=== PATIENT | male | born 1960 | race African-American/Black ===

== ENCOUNTER 2024-03-24 09:03 | Emergency (ER) | payer SELFPAY ==
[2024-03-24] VITALS (54 sets, daily range): BP systolic 99–155; BP diastolic 58–90; PULSE 57–91; RESP 13–33; TEMP 36.3–36.8; O2SAT 98–100
--- NOTE | ~2024-03-24 | CT_ITS ---
Non-contrast Head CT History: Seizure-like activity Technique: Axial non-contrast imaging of the brain was performed. Dose reduction technique was used on this scan by utilizing automated exposure control and iterative reconstruction technique. The dose -length product (DLP) was 605.33 mGy-cm. Findings: There is subtle focal hyperdensity in the cortical or subcortical region in the left front al lobe (axial images 2527, coronal images 2324). No other parenchymal abnormality seen. The ventric les and subarachnoid spaces are normal in size. The calvarium appears normal. The visualized parana danie sinuses and mastoid air cells are clear. Impression: Subtle focal hypodensity in the left frontal lobe, as above. This could reflect focal hemorrhage vers us possibly chronic change or developing calcification. Consider follow-up MR to further evaluate. Reviewed, dictated and finalized at [facility]. Impression: Subtle focal hypodensity in the left frontal lobe, as above. This could reflect focal hemorrhage versus possibly chronic change or developing calcification. C onsider follow-up MR to further evaluate.
--- NOTE | ~2024-03-24 | XR_ITS ---
Clinical Indication: Chest pain PA and lateral views of the chest: Comparison: None Findings: There is mild bibasilar haziness. No pleural effusions. Cardiomediastinal silhouette is wi thin normal limits. Degenerative change in the thoracic spine noted. Impression: Possible mild bibasilar pulmonary edema. Reviewed, dictated and finalized at [facility]. Impression: Possible mild bibasilar pulmonary edema.
--- NOTE | ~2024-03-24 | CT_ITS ---
Clinical Indication: Chest pain CT Scan of the Chest with Contrast: Technique: Contiguous sections were acquired throughout the chest after intravenous administration of 100 cc of Omnipaque 350. Dose reduction technique was used on this scan by utilizing automated expos ure control and iterative reconstruction technique. The dose-length product (DLP) was 212.37 mGy-cm. Findings: There is no evidence of any significant mediastinal, hilar or axillary lymphadenopathy. There is no f illing defect in the pulmonary arterial tree to suggest pulmonary embolus. There is no evidence of ao rtic dissection or aneurysm. There is no evidence of pleural or pericardial effusion. The lungs are clear. No pulmonary nodules or infiltrates are noted. Images through the upper abdomen reveal no abnormalities. Impression: No evidence of pulmonary embolus, aortic dissection, or aortic aneurysm. Clear lungs. Reviewed, dictated and finalized at [facility]. Impression: No evidence of pulmonary embolus, aortic dissection, or aortic aneurysm. Clear lungs.
--- NOTE | ~2024-03-24 | CT_ITS ---
EXAMINATION: CT brain wo/w con DATE: 03/24/2024 16:02 INDICATION: Seizure. Brain mass. TECHNIQUE: Computed tomography (CT) of the head was performed without and with 100 mL Omnipaque 350 i ntravenous contrast. The mA was adjusted according to patient size. Iterative reconstruction techniqu e was employed. The dose-length product was 1589.00 mGy-cm. 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 There i s no acute ischemic infarct or intracranial hemorrhage. The ventricles are normal in size. There is m ild mucosal thickening in the paranasal sinuses. The mastoid air cells are normal. IMPRESSION: 1. 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 2. 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 Reviewed, dictated and finalized at location [facility].
--- NOTE | 2024-03-24 09:04 | ECG_ITS ---
SEE SCANNED COPY FOR CONFIRMED REPORT MTDD
--- NOTE | 2024-03-24 09:20 | ED.CHESTPAIN ---
HPI - Chest Pain General Chief Complaint: Chest Pain <PRICILLA Parks Last Filed: 03/24/24 17:45> Stated Complaint: chest pain, i think i had a seziure <PRICILLA Parks Last Filed: 03/24/24 17:45> Time Seen by Provider: 03/24/24 09:08 <PRICILLA Parks Last Filed: 03/24/24 17:45> Source: patient <PRICILLA Parks Last Filed: 03/24/24 17:45> Mode of arrival: ambulatory <PRICILLA Parks Filed: 03/24/24 17:45> Limitations: no limitations <PRICILLA Parks Filed: 03/24/24 17:45> History of Present Illness HPI narrative: Patient is a 63 y/o male who presents to the ED with c/o CP and possible seizure like activity. Patient reports he had seizure like activity this morning around 445am. 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 Patient states he was shaking on the ground, bit his tongue, urinated on himself, and was confused for approx 10-15 minutes after the episode. He denies any previous seizure like activity/seizure disorder. Patient also reports having left sided CP, radiating into his left arm, since around 5am, after the seizure like episode. Reports pain is still present currently. Denies previous hx of cardiac disease. Reported mild dizziness, denied SOB, fevers, recent cough/cold sx's, BLE pain or swelling. Patient reports occasional drinking. Denies daily drinking. Admits to using cocaine this week. Of note, patient was seen eating breakfast in the hospital cafeteria this morning prior to checking into the ED. <PRICILLA Parks Last Filed: 03/24/24 17:45> Related Data Allergies/Adverse Reactions: Allergies Allergy/AdvReac Type Severity Reaction Status Date / Time morphine Allergy Shakiness Verified 03/24/24 09:13 <PRICILLA Parks Last Filed: 03/24/24 17:45> Review of Systems Review of Systems: CONSTITUTIONAL: Denies fever, chills, or sweats. ENT: Denies rhinorrhea, congestion, sore throat. CARDIOVASCULAR: See HPI RESPIRATORY: Denies cough or dyspnea. GASTROINTESTINAL: Denies abdominal pain, nausea, vomiting. NEUROLOGIC: See HPI. <Yael Penaloza PA-C - Last Filed: 03/24/24 17:45> All systems reviewed & are unremarkable except as noted in HPI and below <Yael Penaloza PA-C - Last Filed: 03/24/24 17:45> Exam Narrative: GENERAL: Appears older than stated age, mildly disheveled, non-toxic, in no acute distress. HEAD: Normocephalic, atraumatic. EYES: Pupils are small but reactive. Conjunctiva clear. EOMI. ENT: Partially edentulous. Poor dentition. NECK: Supple, no meningeal signs. RESPIRATORY: Airway patent, respirations nonlabored. Clear to auscultation bilaterally, no rales, rhonchi, wheezing. CARDIOVASCULAR: Regular rate and rhythm without murmurs, rubs, or gallops. ABDOMINAL: Soft, no tenderness throughout abdomen, nondistended. Normoactive BS. MUSCULOSKELETAL: Moves all extremities. No gross deformities. No lower ext edema/tenderness throughout calves. SKIN: Warm, dry, normal color. NEURO: A&O X3. Intermittently somnolent, easily arousable to verbal stimuli. Speech clear. Follows commands. Cranial nerves II-XII grossly intact. Steady gait. No ataxic movements. No focal neurologic deficits. Strength 5/5 in upper and lower extremities bilaterally. [id number] testing intact bilaterally. No pronator drift. Equal rawhide trimmer strength bilaterally. PSYCHIATRIC: Appropriate mood and affect. Normal interaction. <Yael Penaloza PA-C - Last Filed: 03/24/24 17:45> Course ANALYTICS SPECIALIST/PA Physician Supervision I did review the chart, agree with the management and I have seen the patient <Sebastian Bender MD - Last Filed: 03/24/24 18:40> Vital Signs Vital signs: Vital Signs Temperature 36.3 C L 03/24/24 09:06 Pulse Rate 62 03/24/24 09:06 Respiratory Rate 16 03/24/24 09:06 Blood Pressure 128/80 03/24/24 09:06 Pulse Oximet
[2024-03-24] MEDS: ASPIRIN 81 MG CHEWABLE TABLET 324 MG PO (09:35)
[2024-03-24] MEDS: NITROGLYCERIN SL 0.4 MG TABLET SUBLINGUAL (09:40)
[2024-03-24] MEDS: SODIUM CHLORIDE 0.9% IV 1,000 ML 999 ML IV CONT (09:40)
[2024-03-24 09:48] LABS: Basophils Percent Auto 0.5 % (0.2-1.2); Eosinophils Absolute Auto 0.5 K/mm3 (0-0.3); Eosinophils Percent Auto 10.2 % (0-4.4); Hematocrit 39.9 % (42.0-52.0); Hemoglobin 12.6 g/dL (14.0-18.0); Immature Granulocyte Absolute 0.01 K/mm3 (0.00-0.031); Immature Granulocyte Percent A 0.2 % (0-0.5); Lymphocytes Absolute Auto 1.04 K/mm3 (0.9-3.2); Lymphocytes Percent Auto 23.6 % (18.3-44.2); Mean Corpuscular HGB Conc 31.6 g/dl (32-36); Mean Corpuscular Hemoglobin 30.1 pg (26-34); Mean Corpuscular Volume 95.2 fl (80-100); Mean Platelet Volume 10.4 fl (7.4-10.4); Monocytes Absolute Auto 0.4 K/mm3 (0.1-0.6); Monocytes Percent Auto 9.8 % (2.6-8.5); Neutrophils Absolute Auto 2.5 K/mm3 (1.3-6.7); Neutrophils Percent Auto 55.7 % (45.5-73.1); Platelet Count Result 247 k/mm3 (150-375); Red Blood Count 4.19 M/mm3 (4.6-6.20); Red Cell Distribution Width 13.9 % (11.5-14.5); White Blood Count 4.4 K/mm3 (4.5-10.0)
[2024-03-24 10:05] LABS: Ethanol < 10 mg/dL (<10)
[2024-03-24 10:06] LABS: Alanine Aminotransferase 15 U/L (6-50); Albumin Level 3.8 g/dL (3.5-5.1); Alkaline Phosphatase 87 U/L (38-126); Anion Gap 8 mmol/L (4-12); Aspartate Amino Transferase 32 U/L (17-59); Bilirubin,Total 0.5 mg/dL (0.2-1.3); Blood Urea Nitrogen 21 mg/dL (9-20); Calcium 8.9 mg/dL (8.4-10.2); Carbon Dioxide 24 mmol/L (22-30); Chloride 107 mmol/L (98-107); Estimated CRCL calculation 63 ml/min; Estimated Glomerular Filt Rate > 60; Glucose 112 mg/dL (65-110); Lipase 281 U/L (23-300); Potassium 4.1 mmol/L (3.4-5.0); Sodium 139 mmol/L (137-145)
[2024-03-24] MEDS: NALOXONE HCL 0.4 MG/ML VIAL IV PUSH (10:12)
[2024-03-24] MEDS: levETIRAcetam 1000MG/NACL100ML 1,000 MG/100 ML BAG 400 MG IVPB (10:13)
--- NOTE | 2024-03-24 10:13 | PC.NURSE ---
Pt unable to urinate and refuses catheter.
[2024-03-24 10:15] LABS: NT Pro B Type Natriuretic Pept 191 pg/mL (19.9-100)
[2024-03-24 10:16] LABS: INR 0.9; Prothrombin Time 12.7 Seconds (11.1-14.7)
[2024-03-24 10:17] LABS: Partial Thromboplastin Time 31.6 Seconds (22.3-36.8)
[2024-03-24 10:18] LABS: Troponin I < 0.012 ng/mL (0.000-0.034)
--- NOTE | 2024-03-24 10:20 | PC.NURSE ---
No change in loc after Narcan. Arousable to verbal stimuli but is drowsy.
[2024-03-24 10:21] LABS: D Dimer 1.92 ug/mL (<0.48)
[2024-03-24 10:47] LABS: Lactic Acid Reflex 1.4 mmol/L (0.7-2.0)
[2024-03-24 11:30] LABS: Appearance Urine Clear (Clear); Bilirubin Urine Negative (Negative); Blood Urine Negative (Negative); Color Urine Yellow (Yellow); Glucose Urine UA Negative (Negative); Ketones Urine Negative (Negative); Leukocyte Esterase Ur Negative LEU/UL (Negative); Nitrate Urine Negative (Negative); Protein Urine Negative (Negative); Urobilinogen Urine 0.2 mg/dL (<2.0)
[2024-03-24 11:31] LABS: Add Urine Microscopic? NO
[2024-03-24 11:48] LABS: Amphetamine Screen Urine Negative (Negative); Barbiturate Screen Urine Negative (Negative); Benzodiazepines Screen Urine Negative (Negative); Cannabinoid Screen Urine Positive (Negative); Cocaine Screen Urine Positive (Negative); Methadone Screen Urine Negative (Negative); Opiate Screen Urine Negative (Negative); Phencyclidine Screen Urine Negative (Negative)
--- NOTE | 2024-03-24 12:20 | ECG_ITS ---
SEE SCANNED COPY FOR CONFIRMED REPORT MTDD
[2024-03-24 12:55] LABS: Troponin I < 0.012 ng/mL (0.000-0.034)
--- NOTE | 2024-03-24 15:20 | ECG_ITS ---
SEE SCANNED COPY FOR CONFIRMED REPORT MTDD
[2024-03-24 15:55] LABS: Troponin I < 0.012 ng/mL (0.000-0.034)
--- NOTE | 2024-03-24 19:23 | PC.NURSE ---
this rn assumed care of patient. this rn took patient report from Miroslava Rodriguez.
== END 2024-03-24 19:43 | disposition short-term general hospital (02) ==
PROVIDERS: Family Medicine; Emergency Provider Physician Assistant
DX: R07.89 Other chest pain (principal); Q28.2 Arteriovenous malformation of cerebral vessels; R56.9 Unspecified convulsions; R00.1 Bradycardia, unspecified; R94.31 Abnormal electrocardiogram [ECG] [EKG]
CPT/HCPCS: 36415; 70450; 70470; 71046; 71275; 80053; 80307; 81003; 83605; 83690; 83735; 83880; 84484; 85025; 85380; 85610; 85730; 93005; 96365; 96375; 99285; A9270; J1953; J2310; J7030; Q9967